=== PATIENT | female | born 1955 | race Two or more races ===

== ENCOUNTER → 2017-04-10 | Outpatient (CLI) | payer MEDICARE, OTHER | END | disposition home or self-care (01) | LOC: CT 14:37 | PROVIDERS: ATTEND Orthopaedic Surgery | DX: M17.11 Unilateral primary osteoarthritis, right knee (principal) | CPT/HCPCS: 73700 ==

== ENCOUNTER 2017-05-05 00:43 | Inpatient (IN) | payer MEDICARE ==
[2017-04-30 14:11] VITALS: BP 163/77
--- NOTE | 2017-04-30 14:34 | PCM.EKG ---
[facility] Test Date: 2017-04-30 Test Time: 14:20:00 Pat Name: PINKY CHRISTOPHER Department: Patient ID: [facility]-[id number] Room: Gender: F Implementation Architect: AWLVAnnel : [id number] Requested By: LAMAR CONNELLY Order Number: [id number] Reading MD: Marty Valles Measurements Intervals [place] Rate: 96 P: 75 PA: 134 QRS: -5 QRSD: 90 T: 70 QT: 368 QTc: 464 Interpretive Statements Normal sinus rhythm Normal ECG No previous ECG available for comparison Electronically Signed On 04-30-2017 15:32:17 MANAGER MECHANICAL by Marty Valles Please click the below link to view image of tracing.
[2017-04-30 14:45] LABS: BASOPHIL % 0.3 % (0.0-0.2); EOSINOPHIL # 0.1 10^3/uL (0.0-0.2); EOSINOPHIL % 1.1 % (0.0-5.0); HEMOGLOBIN 14.1 g/dL (12.0-15.0); LYMPHOCYTES % 39.9 % (24.0-44.0); MEAN CELL HGB 30.8 pg (26-34); MEAN CELL HGB CONCENTRATION 33.7 g/dL (33-37); MEAN CORP VOLUME 91.3 fL (78-100); MEAN PLATELET VOLUME 11.2 fL (7.8-11.0); MONOCYTES # 0.4 10^3/uL (0.3-0.8); MONOCYTES % 4.7 % (5.0-12.0); NEUTROPHILS % 53.7 % (41.0-85.0); RED CELL DISTRIBUTION WIDTH 13.1 % (11.5-14.5); WHITE BLOOD CELL 7.5 10^3/uL (4.5-11.0)
[2017-04-30 14:53] LABS: BILIRUBIN,URINE NEGATIVE (NEGATIVE); UROBILINOGEN,URINE NORMAL (NEGATIVE)
[2017-04-30 14:54] LABS: APPEARANCE,URINE CLEAR (CLEAR); UA COLOR STRAW (YELLOW)
[2017-04-30 15:03] LABS: CALCIUM 9.3 mg/dL (8.4-10.5); CARBON DIOXIDE 23.3 mmol/L (20.0-32)
[~2017-05-05] VITALS: Ht 154.9 cm; Wt 95.7 kg
[2017-05-05] VITALS (11 sets, daily range): BP systolic 134–157; BP diastolic 67–95
[~2017-05-05 00:43] MED LIST: CHRO200C PO; CYCL10TA2 PO; HYDR-3101 PO; MULT-615 PO; TURM500C7 PO
[2017-05-05] MEDS ORDERED: VANCOMYCIN HCL 2 GM ONE (04:53)
[2017-05-05] MEDS ORDERED: NS 250ML 250 ML IV ONE ×2 (04:54→08:35)
[2017-05-05] MEDS ORDERED: VANCOMYCIN 1,500 MG in NS 100ML 100 ML IV ONE (07:45)
[2017-05-05] MEDS ORDERED: BACTROBAN NASAL NS ONE (07:45)
[2017-05-05] MEDS: NS 1000ML 1,000 ML IV SCH (08:05)
[2017-05-05] MEDS ORDERED: NS 100ML 200 ML IV ONE (08:35)
[2017-05-05] MEDS ORDERED: NS 3000ML IRR IR ONE (08:35)
[2017-05-05] MEDS ORDERED: SODIUM CHLORIDE IR ONE (08:35)
[2017-05-05] MEDS ORDERED: TRANEXAMIC ACID IV ONE (08:44)
[2017-05-05] MEDS ORDERED: ZOFRAN ONE (08:56)
[2017-05-05] MEDS ORDERED: NEOSTIGMINE ONE (08:56)
[2017-05-05] MEDS ORDERED: TORADOL ONE (08:56)
[2017-05-05] MEDS ORDERED: ZEMURON IV ONE (08:57)
[2017-05-05] MEDS ORDERED: DIPRIVAN IV ONE (08:58)
[2017-05-05] MEDS ORDERED: SUBLIMAZE ONE (08:58)
[2017-05-05] MEDS ORDERED: VERSED ONE (08:58)
[2017-05-05] MEDS ORDERED: NS 1000ML 1,000 ML ONE ×2 (09:00→12:32)
[2017-05-05] MEDS ORDERED: NS 100ML 100 ML IV ONE (09:00)
[2017-05-05] MEDS ORDERED: DECADRON ONE ×2 (09:00→09:25)
[2017-05-05] MEDS ORDERED: NAROPIN 0.5% 5 MG/ML VIAL ONE (09:01)
[2017-05-05] MEDS ORDERED: NAROPIN 0.2% 40 MG/20 ML VIAL ONE (09:01)
[2017-05-05] MEDS ORDERED: DURAMORPH ONE (09:02)
[2017-05-05] MEDS ORDERED: LIDOCAINE 2% VIAL ONE (09:25)
[2017-05-05] MEDS ORDERED: QUELICIN ONE (09:39)
[2017-05-05] MEDS ORDERED: SUBLIMAZE IV PRN (11:00)
[2017-05-05] MEDS ORDERED: MORPHINE SULFATE IV PRN ×2 (11:00→13:30)
[2017-05-05] MEDS ORDERED: PHENERGAN IV PRN (11:00)
[2017-05-05] MEDS ORDERED: TYLENOL PO ONE (11:00)
[2017-05-05] MEDS ORDERED: NS 1000ML 1,000 ML SCH (11:00)
[2017-05-05] MEDS ORDERED: NEURONTIN PO SCH (11:00)
[2017-05-05] MEDS ORDERED: CELEBREX PO ONE ×2 (11:00→21:00)
[2017-05-05] MEDS ORDERED: ZOFRAN IV PRN (11:00)
[2017-05-05] MEDS ORDERED: CEPACOL SORE THROAT LOZENGE MM PRN (13:30)
[2017-05-05] MEDS ORDERED: BACTROBAN NASAL NS PRN (13:30)
[2017-05-05] MEDS ORDERED: LACTATED RINGERS 1,000 ML IV SCH (13:30)
[2017-05-05] MEDS ORDERED: AMBIEN PO PRN (13:30)
[2017-05-05] MEDS ORDERED: VANCOMYCIN HCL IV SCH (13:30)
--- NOTE | 2017-05-05 14:00 | NUR ---
Patient received to floor. Bedside report recieved. CMS check verified by this nurse and PACU nurse.
--- NOTE | 2017-05-05 14:18 | DIREP ---
PROCEDURE:XRAY KNEE 1-2 VWS-RT COMPARISON:None. INDICATIONS:post total right knee FINDINGS: BONES:No acute fracture. JOINTS:Total knee arthroplasty. The prosthetic joint appears intact and appropriately aligned. SOFT TISSUES:Soft tissue edema and emphysema about the knee is consistent with recent postoperative state, as evidenced by overlying skin jose raul. CONCLUSION:Postoperative changes of recent total right knee arthroplasty. No suspicious abnormality. Dictated by: Abner Pierson M.D. on 05/05/2017 at 02:11 PM
--- NOTE | 2017-05-05 14:38 | HPH ---
ADMIT DATE: 05/05/2017 CHIEF COMPLAINT: Painful right knee. HISTORY OF PRESENT ILLNESS: The patient is a 61-year-old female with right knee pain for at least 1 year. She complains of painful locking as well as popping that is painful. Also, complains of giving way. She is no better with bracing or cortisone injections. She has had a trial of Orthovisc without relief. She has had 12 physical therapy visits. She takes hydrocodone 7.5 as well as Flexeril for the pain. She has tried different anti-inflammatories including Advil and Aleve without relief. She has pain at night as well as pain with just household ambulation. The patient's x-rays show that she is luvl-uv-ehba about the medial aspect of the right knee as well as the patellofemoral joint. MEDICATIONS: Include hydrocodone 7.5 q.6 hours p.r.n. pain. She also takes Flexeril 10 mg 3 times a day. PAST MEDICAL HISTORY: Medical problems include type 2 diabetes. PREVIOUS SURGICAL PROCEDURES: , cholecystectomy, herniorrhaphy, appendectomy. SOCIAL HISTORY: The patient is . She lives in [place], [place]. She does not smoke or drink. ALLERGIES: SHE IS ALLERGIC TO AMOXICILLIN, PENICILLIN AND DILAUDID. FAMILY HISTORY: Positive for diabetes as well as lung cancer. REVIEW OF SYSTEMS: Negative for chest pain, shortness of breath, nausea, vomiting, melena, hematochezia, dysuria, hematuria, fever, chills and weight loss. Her diabetes is controlled by diet. PHYSICAL EXAMINATION: GENERAL: Shows a 5 feet 1 inches, 175 pounds, female in no acute distress. HEENT: Within normal limits. CHEST: Clear to auscultation. HEART: Regular rate and rhythm, no murmurs. ABDOMEN: Soft, nontender, good bowel sounds. EXTREMITIES: The right knee has an obvious varus deformity. She has crepitation with flexion and extension. Her range of motion is full extension with 115 degrees of flexion. There is good medial and lateral stability. NEUROLOGICAL: The patient is awake and alert. She is oriented x 3. She has 5/5 strength in all muscle groups of both lower and upper extremities bilaterally, symmetric. There is normal sensation throughout all dermatomes in both lower extremities. IMAGING STUDIES: The patient's x-rays show that she is cwsh-ut-bdbg medially about the right knee as well as about the patellofemoral joint. ASSESSMENT: Osteoarthritis, right knee. Other diagnoses include type 2 diabetes, diet controlled. PLAN: The patient is being admitted for right total knee arthroplasty for pain relief. The risks and hazards of the procedure have been discussed with the patient. She understands the risk involved and wants to proceed as planned. Taqueria Pimentel MD DR: BRAD/lilliam JOB# [id number]
[2017-05-05] MEDS: TYLENOL PO SCH ×2 (14:47→16:50)
[2017-05-05] MEDS: ULTRAM PO PRN ×2 (14:54→20:08)
[2017-05-05] MEDS: BACTROBAN NASAL NS SCH ×2 (15:30→20:09)
[2017-05-05] MEDS: ULTRAM PO SCH ×2 (16:00→20:00)
--- NOTE | 2017-05-05 18:09 | PRM.PN ---
Subjective Subjective Date: May 05, 2017 Time: 18:09 Subjective Awake and alert Pain ok VSS NMV+ Stable Patient History: Diabetes mellitus G8 SISTER G8 SISTER G8 SISTER G8 SISTER FH: coronary artery bypass surgery 33 FATHER, , Age:67 FH: coronary artery disease 33 FATHER, , Age:67 FH: leukemia G8 SISTER FH: uterine cancer G8 SISTER G8 SISTER Hypertension 32 MOTHER, , Age:70 G8 SISTER No known health problems 19 CHILD 19 CHILD 19 CHILD No Family History of: Alzheimer's disease Asthma Cerebrovascular disorder Chronic obstructive pulmonary disease Congestive heart failure Diabetes insipidus Parkinson's disease VTE VTE Risk Total Score: 4 VTE Risk Score VTE Risk: Score 0-1 = Low Risk (Aggressive mobilization; early ambulation; no VTE prophylaxis required) Score 2: Moderate Risk (Intermittent/Pneumatic Compression Device OR Lovenox/Heparin/Coumadin) Score 3-4: High Risk (Intermittent/Pneumatic Compression Device AND Lovenox/Heparin/Coumadin) Score > or =5: Highest Risk (Intermittent/Pneumatic Compression Device AND Lovenox/Heparin/Coumadin) Review of Systems Allergies: Coded Allergies: Penicillins (Verified Allergy, Severe, Swelling, 04/30/17) amoxicillin (Verified Allergy, Severe, Swelling, 04/30/17) hydromorphone (Verified Allergy, Severe, SHORTNESS OF BREATH,LOW HR, FEVER , 04/30/17) Scheduled Chromium Picolinate (Chromium Picolinate), 200 MCG PO DAILY24, (Reported) Cyclobenzaprine Hcl (Flexeril), 1 TAB PO BID, (Reported) Hydrocodone Bit/Acetaminophen ([place] 7.5-325), 1 TAB PO BID, (Reported) Multivitamin With Minerals (Hair, Skin & Nails), 1 EACH PO DAILY24, (Reported) Turmeric/Turmeric Root Extract (Turmeric 450-50 mg Capsule), 1 CAPSULE PO DAILY24, (Reported) Objective Vitals and I/O Vital Sign - Last 24 Hours 05/05/17 05/05/17 05/05/17 05/05/17 07:51 07:51 09:53 09:58 Temp 97.8 Pulse 81 93 83 Resp 18 18 18 B/P (MAP) 141/80 (100) 157/95 (115) 147/72 (97) Pulse Ox 97 99 96 O2 Delivery Room Air Room Air Room Air Room Air 05/05/17 05/05/17 05/05/17 05/05/17 10:03 10:08 10:13 13:08 Temp 98.0 Pulse 72 69 84 86 Resp 18 18 18 18 B/P (MAP) 142/73 (96) 150/67 (94) 156/72 (100) 146/78 (100) Pulse Ox 97 97 96 83 O2 Delivery Room Air Room Air Room Air Face Tent 05/05/17 05/05/17 05/05/17 05/05/17 13:22 13:36 14:33 14:52 Temp 97.6 Pulse 63 91 98 Resp 18 18 18 B/P (MAP) 148/77 (100) 134/74 (94) Pulse Ox 98 94 96 O2 Delivery Face Tent Nasal Cannula Nasal Cannula Nasal Cannula O2 Flow Rate 3.00 3.00 FiO2 32 05/05/17 05/05/17 14:53 16:18 Temp 97.6 Pulse 96 Resp 18 20 B/P (MAP) 138/81 (100) Pulse Ox 96 Medication Reconciliation Scheduled Chromium Picolinate (Chromium Picolinate), 200 MCG PO DAILY24, (Reported) Cyclobenzaprine Hcl (Flexeril), 1 TAB PO BID, (Reported) Hydrocodone Bit/Acetaminophen ([place] 7.5-325), 1 TAB PO BID, (Reported) Multivitamin With Minerals (Hair, Skin & Nails), 1 EACH PO DAILY24, (Reported) Turmeric/Turmeric Root Extract (Turmeric 450-50 mg Capsule), 1 CAPSULE PO DAILY24, (Reported) Course Blood Pressure Systolic: 138 Blood Pressure Diastolic: 81 Blood Pressure Mean: 100 Assessment/Plan Assessment/Plan Patient History: Diabetes mellitus G8 SISTER G8 SISTER G8 SISTER G8 SISTER FH: coronary artery bypass surgery 33 FATHER, , Age:67 FH: coronary artery disease 33 FATHER, , Age:67 FH: leukemia G8 SISTER FH: uterine cancer G8 SISTER G8 SISTER Hypertension 32 MOTHER, , Age:70 G8 SISTER No known health problems 19 CHILD 19 CHILD 19 CHILD No Family History of: Alzheimer's disease Asthma Cerebrovascular disorder Chronic obstructive pulmonary disease Congestive heart failure Diabetes insipidus Parkinson's disease LAMAR CONNELLY MD May 05, 2017 18:09
[2017-05-05 18:13] LABS: HEMOGLOBIN 13.7 g/dL (12.0-15.0); MEAN CELL HGB 30.9 pg (26-34); MEAN CELL HGB CONCENTRATION 33.3 g/dL (33-37); MEAN PLATELET VOLUME 10.8 fL (7.8-11.0); RED CELL DISTRIBUTION WIDTH 13.1 % (11.5-14.5); WHITE BLOOD CELL 11.3 10^3/uL (4.5-11.0)
--- NOTE | 2017-05-05 18:18 | OPH ---
DATE OF SURGERY: 05/05/2017 PREOPERATIVE DIAGNOSIS: Osteoarthritis of the right knee. POSTOPERATIVE DIAGNOSIS: Osteoarthritis of the right knee. OPERATIVE PROCEDURE: Right total knee arthroplasty using Medacta Sphere knee, size 3+ femur, a size 3 tibia, a 10 mm insert, a size 2 dome patella. All components were cemented. SURGEON: Taqueria Pimentel MD ANESTHESIA: General endotracheal. TOURNIQUET TIME: 68 minutes at 300 mmHg. DRAINS: None. BLOOD LOSS: 400 mL. DESCRIPTION OF INDICATIONS: A 61-year-old female with right knee pain secondary to osteoarthritis. The patient has failed conservative treatment including physical therapy, bracing, anti-inflammatories, p.o. narcotics, bracing as well as Orthovisc and cortisone injections. She is wuki-in-snmk medially with severe patellofemoral narrowing with osteophytes. She has painful locking and giving way about the knee on a daily basis and is limited from doing her normal daily activities because of knee pain. She was brought to the operating room today for right total knee arthroplasty for pain relief. DESCRIPTION OF PROCEDURE: This patient was placed on the operating table in the supine position. A general endotracheal anesthetic was induced without difficulty. The patient had the right thigh padded and the right lower extremity was then sterilely prepped and draped. The leg was exsanguinated with an Esmarch and the tourniquet was inflated to 300 mmHg. The patient then had the knee flexed to 90 degrees. An anterior incision was made. Incision was taken through the skin and subcutaneous tissues. Full thickness flaps were developed medially and laterally. Medial parapatellar arthrotomy was performed. The patient had the patella deviated laterally. Medial and lateral meniscectomies were performed. The anterior and posterior cruciate ligaments were excised. The capsule and the MCL were released around the posterior medial corner. The patient then had the MyKnee femoral cutting guide placed about the distal femur. It was held into position with multiple pins and then the distal femoral cut was made with the power saw. The patient then had the #2 jig size 3+ placed about the distal femur and held into position with multiple pins and screws. The anterior and posterior femoral cuts were made as were the chamfer cuts. The patient had the tibia subluxed anteriorly. The MyKnee tibial cutting block was applied and held into position with multiple pins. Tibial cut was then made with the power saw. The patient had the tibia trial and a size 3 tibia had good coverage. It was held into position with multiple pins. The central drill hole was made and then the cruciate punch was used to stabilize the tibial component. The patient then had the flexion and extension blocks used. There was good stability at 90 degrees of flexion as well as full extension with the 10 mm blocks. The patient then had the trial femoral component replaced and stabilized with the punch. The 10 mm insert was placed. The size 3+ femoral component was placed. The knee went out into full extension, good tracking of the patella, good medial and lateral stability. The patella was everted. The patella was cut. There were still 13 mm of patella left. The drill holes were made. A size 2 dome patella had good coverage and good tracking. The patient then had the final medial and lateral femoral drill holes made. The femoral sulcus cut was made. The patient had the trial components removed. The wounds were then copiously irrigated and the bone ends were dried. The patient had the size 3 tibial component cemented into position. The 10 mm insert was then impacted into position and secured with an anterior screw. The size 3+ femoral component was cemented as was the patella. Once all the excess cement was removed and the cement had hardened, then, the tourniquet was released, the bleeding was controlled with the Aquamantys device. The wound was irrigated with Betadine-containing solution for 3 minutes. The capsule was closed with a #2 PDS in interrupted [id number] manner. The subcutaneous was closed with 2-0 Monocryl barbed in a running manner and then the skin was closed with jose raul. A medium size Aquacel reinforced with 4 x 8s, ABD pads, cast padding and Damien wrap was applied. The patient was extubated in the operating room, sent to recovery in stable condition. Taqueria Pimentel MD DR: BRAD/lilliam JOB# [id number]
[2017-05-05] MEDS: CELEBREX PO SCH (20:07)
[2017-05-05] MEDS: VANCOMYCIN HCL 1.5 GM in NS 250ML 300 ML IV SCH (20:07)
[2017-05-06] MEDS: ULTRAM PO PRN ×5 (00:39→23:29)
[2017-05-06] MEDS: NS 1000ML 1,000 ML IV SCH ×3 (00:41→12:15)
[2017-05-06] MEDS: TYLENOL PO SCH ×6 (00:43→23:28)
[2017-05-06 01:51] VITALS: BP 141/85
[2017-05-06] MEDS: ULTRAM PO SCH ×6 (04:00→20:00)
[2017-05-06 05:26] LABS: HEMOGLOBIN 12.7 g/dL (12.0-15.0); MEAN CELL HGB 30.2 pg (26-34); MEAN CELL HGB CONCENTRATION 32.8 g/dL (33-37); MEAN CORP VOLUME 92.1 fL (78-100); MEAN PLATELET VOLUME 11.4 fL (7.8-11.0); RED CELL DISTRIBUTION WIDTH 12.9 % (11.5-14.5); WHITE BLOOD CELL 12.2 10^3/uL (4.5-11.0)
[2017-05-06 05:51] VITALS: BP 125/78
--- NOTE | 2017-05-06 06:30 | NUR ---
Report Received report assumed care of patient.
[2017-05-06 07:22] VITALS: BP 129/59
[2017-05-06] MEDS: CELEBREX PO SCH ×2 (08:23→20:48)
[2017-05-06] MEDS: XARELTO PO SCH (08:24)
[2017-05-06] MEDS: PEPCID PO SCH (08:24)
[2017-05-06] MEDS: COLACE PO SCH (08:24)
[2017-05-06] MEDS: VANCOMYCIN HCL 1.5 GM in NS 250ML 300 ML IV SCH (08:27)
[2017-05-06] MEDS: BACTROBAN NASAL NS SCH ×2 (08:29→20:48)
--- NOTE | 2017-05-06 08:30 | NUR ---
PT at bedside
--- NOTE | 2017-05-06 08:45 | NUR ---
STATUS Patient sitting up in chair at this time. Denies any wants or needs at this time. No s/s of distress noted. Call light in reach. Will continue to monitor.
[2017-05-06] MEDS ORDERED: DEXTROSE 50%-WATER SYRINGE IV PRN (09:00)
--- NOTE | 2017-05-06 09:28 | NUR ---
Post op pain rounds POD #1 after knee surgery. Pt is sitting in chair. States have not ambulated as of yet dt 'high blood sugar yesterday". Pt states that she noticed pain block wore off around 0300 this morning. She is very pleased with anesthetic and pain block. no complications noted.
--- NOTE | 2017-05-06 09:59 | PRM.PN ---
Subjective Subjective Date: May 06, 2017 Time: 09:58 Subjective Ambulated in sow today Pain ok VSS NVM+ HGB 12.7 Cont with PT Patient History: Diabetes mellitus G8 SISTER G8 SISTER G8 SISTER G8 SISTER FH: coronary artery bypass surgery 33 FATHER, , Age:67 FH: coronary artery disease 33 FATHER, , Age:67 FH: leukemia G8 SISTER FH: uterine cancer G8 SISTER G8 SISTER Hypertension 32 MOTHER, , Age:70 G8 SISTER No known health problems 19 CHILD 19 CHILD 19 CHILD No Family History of: Alzheimer's disease Asthma Cerebrovascular disorder Chronic obstructive pulmonary disease Congestive heart failure Diabetes insipidus Parkinson's disease VTE VTE Risk Total Score: 4 VTE Risk Score VTE Risk: Score 0-1 = Low Risk (Aggressive mobilization; early ambulation; no VTE prophylaxis required) Score 2: Moderate Risk (Intermittent/Pneumatic Compression Device OR Lovenox/Heparin/Coumadin) Score 3-4: High Risk (Intermittent/Pneumatic Compression Device AND Lovenox/Heparin/Coumadin) Score > or =5: Highest Risk (Intermittent/Pneumatic Compression Device AND Lovenox/Heparin/Coumadin) Review of Systems Allergies: Coded Allergies: Penicillins (Verified Allergy, Severe, Swelling, 04/30/17) amoxicillin (Verified Allergy, Severe, Swelling, 04/30/17) hydromorphone (Verified Allergy, Severe, SHORTNESS OF BREATH,LOW HR, FEVER , 04/30/17) Scheduled Chromium Picolinate (Chromium Picolinate), 200 MCG PO DAILY24, (Reported) Cyclobenzaprine Hcl (Flexeril), 1 TAB PO BID, (Reported) Hydrocodone Bit/Acetaminophen ([place] 7.5-325), 1 TAB PO BID, (Reported) Multivitamin With Minerals (Hair, Skin & Nails), 1 EACH PO DAILY24, (Reported) Turmeric/Turmeric Root Extract (Turmeric 450-50 mg Capsule), 1 CAPSULE PO DAILY24, (Reported) Objective Vitals and I/O Vital Sign - Last 24 Hours 05/05/17 05/05/17 05/05/17 05/05/17 10:03 10:08 10:13 13:08 Temp 98.0 Pulse 72 69 84 86 Resp B/P (MAP) 142/73 (96) 150/67 (94) 156/72 (100) 146/78 (100) Pulse Ox 97 97 96 83 O2 Delivery Room Air Room Air Room Air Face Tent 05/05/17 05/05/17 05/05/17 05/05/17 13:22 13:36 14:33 14:52 Temp 97.6 Pulse 63 91 98 Resp 18 B/P (MAP) 148/77 (100) 134/74 (94) Pulse Ox 98 94 96 O2 Delivery Face Tent Nasal Cannula Nasal Cannula Nasal Cannula O2 Flow Rate 3.00 3.00 FiO2 32 05/05/17 05/05/17 05/05/17 05/05/17 14:53 16:18 20:19 21:27 Temp 97.6 98.0 Pulse 96 96 96 Resp 18 20 18 B/P (MAP) 138/81 (100) 146/81 (102) Pulse Ox 96 96 95 O2 Delivery Nasal Cannula Room Air O2 Flow Rate 2.00 05/05/17 05/06/17 05/06/17 05/06/17 23:12 01:51 05:51 07:22 Temp 97.9 98.4 98.4 Pulse 88 86 73 Resp 18 18 B/P (MAP) 141/85 (103) 125/78 (94) 129/59 (82) Pulse Ox 92 94 93 O2 Delivery Nasal Cannula Nasal Canula Nasal Canula Nasal Canula O2 Flow Rate 1.00 05/06/17 05/06/17 09:19 09:38 Pulse 80 Resp 18 Pulse Ox 91 O2 Delivery Room Air Room Air O2 Flow Rate 1.00 FiO2 21 Intake and Output 05/05/17 05/05/17 05/06/17 15:00 23:00 07:00 Intake Total 1980 ml 600 ml 450 ml Output Total 630 ml 600 ml 2000 ml Balance 1350 ml 0 ml -1550 ml Medication Reconciliation Scheduled Chromium Picolinate (Chromium Picolinate), 200 MCG PO DAILY24, (Reported) Cyclobenzaprine Hcl (Flexeril), 1 TAB PO BID, (Reported) Hydrocodone Bit/Acetaminophen ([place] 7.5-325), 1 TAB PO BID, (Reported) Multivitamin With Minerals (Hair, Skin & Nails), 1 EACH PO DAILY24, (Reported) Turmeric/Turmeric Root Extract (Turmeric 450-50 mg Capsule), 1 CAPSULE PO DAILY24, (Reported) Course Blood Pressure Systolic: 129 Blood Pressure Diastolic: 59 Blood Pressure Mean: 82 Assessment/Plan Assessment/Plan Patient History: Diabetes mellitus G8 SISTER G8 SISTER G8 SISTER G8 SISTER FH: coronary artery bypass surgery 33 FATHER, , Age:67 FH: coronary artery disease 33 FATHER, , Age:67 FH: leukemia G8 SISTER FH: uterine cancer G8 SISTER G8 SISTER Hypertension 32 MOTHER, , Age:70 G8 SISTER No known health problems 19 CHILD 19 CHILD 19 CHILD No Family History of: Alzheimer's disease Asthma Cerebrovascular disorder Chronic obstructive pulmonary disease Congestive heart failure Diabetes insipidus Parkinson's disease LAMAR CONNELLY MD May 06, 2017 09:59
[2017-05-06] MEDS ORDERED: NEURONTIN PO SCH (11:00)
--- NOTE | 2017-05-06 11:00 | NUR ---
DISCHARGE PLANNING CASE MANAGEMENT DISCUSSED DISCHARGE PLANNING WITH PATIENT INCLUDING HOME HEALTH, OUTPATIENT REHAB, SNF, REHAB, AND DME. PATIENT LIVES AT HOME WITH . PT STATED, "I LIVE IN [place], [place]. I WOULD LIKE [facility] TO FOLLOW ME AT HOME FOR PHYSICAL THERAPY." CHOICE LETTER SIGNED AND INFORMATION FAXED TO [facility] IN [place], [place]. PT ALSO REQUESTED SHOWER BENCH WITH BACK. INFORMED PATIENT OF $50-$60 COST. PT STATED, "I CAN PAY FOR IT, I HAVE MY CREDIT CARD WITH ME NOW." PT STATED, "I ALREADY HAVE A WALKER AT HOME." DENIES NEED FOR OTHER DME AT THIS TIME. DISCHARGE GOAL IS TO DISCHARGE HOME WITH AND [facility] TO FOLLOW AT HOME. WILL CONTINUE TO FOLLOW DISCHARGE NEEDS.
[2017-05-06 11:34] VITALS: BP 142/72
--- NOTE | 2017-05-06 11:38 | CNH ---
DATE OF CONSULTATION: 05/05/2017 ATTENDING PHYSICIAN: Taqueria Pimentel MD REASON FOR CONSULTATION: Concurrent postop medical care. HISTORY OF PRESENT ILLNESS: The patient is a very pleasant 61-year-old female who was having worsening DJD of her right knee. She underwent a right total knee arthroplasty by Dr. Pimentel today. It was noted that her blood sugars were over 300 preoperatively. She states that she was diagnosed with diabetes 16-17 years ago and has been on diet control since then. She states that her sugars normally have been very good, but lately have been increasing. She is not taking any new medications and she has been keeping the diet the same. She denies any chest pain or shortness of breath at this time. She states that she feels okay. PAST MEDICAL HISTORY: Again, type 2 diabetes mellitus that was diet controlled, DJD. PAST SURGICAL HISTORY: Cholecystectomy, hernia repair, appendectomy and . SOCIAL HISTORY: She does not smoke. No illicit drugs, no alcohol. ALLERGIES: AMOXICILLIN, DILAUDID AND PENICILLIN. FAMILY HISTORY: Asked and noncontributory for this admission. MEDICATIONS: She is on include just [place] and Flexeril. PHYSICAL EXAMINATION: VITAL SIGNS: Currently, her temperature is 97.6, pulse rate 96, respirations 20, blood pressure was 138/81 and O2 sats of 96% on room air. My physical exam is as follows: GENERAL: She is in no acute distress, awake and alert, very pleasant lady, oriented x 4. HEENT: Oropharynx is clear. NECK: Supple, no JVD. HEART: S1, S2 audible. She was not tachycardic. No murmurs. LUNGS: Clear bilaterally. ABDOMEN: Good bowel sounds, soft abdomen, no rebound or guarding. EXTREMITIES: She has some minimal edema to her legs. LABORATORY DATA: Postop hemoglobin is at 13.7 from 14.1 in her labs. Her MRSA screen was positive. ASSESSMENT: We have this female status post right total knee arthroplasty with markedly elevated blood sugars up to 300 and MRSA positive. I explained to her about the MRSA screen and she will be treated for that. I did talk to her about her progressive diabetes going on for over 10 years and the need to treat it at this point. She understands and is in agreement with me. So, we will follow her blood sugars overnight and I will talk to her about starting her on a diabetic medicine in the morning. She is afraid of metformin because her is on it and has GI side effects from it and she is afraid that she will get GI side effects from this and I explained to her that there are other medications to use besides this. So, we will see how her sugars will do overnight and I will talk to her about treating it in the morning. I will follow along with Dr. Pimentel. I would like to thank Dr. Pimentel for this consultation. Susie Puente MD DR: EVELYN/lilliam JOB# [id number]
[2017-05-06] MEDS: VALIUM PO PRN ×2 (12:12→20:48)
--- NOTE | 2017-05-06 12:15 | NUR ---
Patient back in bed at this time.
--- NOTE | 2017-05-06 13:45 | NUR ---
STATUS Patient resting in bed at this time resting with eyes closed. Alert to verbal stimuli. Denies any wants or needs. No s/s of distress noted call light in reach. Patient states her pain has finally decreased after last dose of pain medication.
[2017-05-06 16:11] VITALS: BP 142/72
[2017-05-06] MEDS: HUMALOG SQ PRN (17:08)
[2017-05-06 19:17] VITALS: BP 167/63
[2017-05-07] VITALS: BP 148/70
[2017-05-07] MEDS: ULTRAM PO SCH ×6 (04:00→16:00)
[2017-05-07 04:10] VITALS: BP 155/72
[2017-05-07] MEDS: ULTRAM PO PRN ×4 (04:10→20:36)
[2017-05-07] MEDS: TYLENOL PO SCH ×2 (04:11→16:09)
[2017-05-07 05:16] LABS: BASOPHIL % 0.4 % (0.0-0.2); EOSINOPHIL # 0.1 10^3/uL (0.0-0.2); LYMPHOCYTES # 2.9 10^3/uL (1.0-4.8); MEAN CELL HGB 30.7 pg (26-34); MEAN CELL HGB CONCENTRATION 32.7 g/dL (33-37); MEAN CORP VOLUME 93.9 fL (78-100); MEAN PLATELET VOLUME 10.6 fL (7.8-11.0); MONOCYTES # 0.8 10^3/uL (0.3-0.8); MONOCYTES % 8.2 % (5.0-12.0); NEUTROPHIL # 5.5 10^3/uL (1.8-7.7); NEUTROPHILS % 59.2 % (41.0-85.0); RED CELL DISTRIBUTION WIDTH 13.1 % (11.5-14.5); WHITE BLOOD CELL 9.3 10^3/uL (4.5-11.0)
--- NOTE | 2017-05-07 06:10 | NUR ---
CARY SALAZAR. DC'D PT DTV BY [id number].
--- NOTE | 2017-05-07 06:30 | NUR ---
Report Received report assumed care of patient. Patient alert to verbal stimuli. Denies any wants or needs at this time. No s/s of distress noted call light in reach.
[2017-05-07] MEDS: NS 1000ML 1,000 ML IV SCH ×3 (07:07→08:44)
[2017-05-07] MEDS: VALIUM PO PRN ×2 (08:00→20:36)
--- NOTE | 2017-05-07 08:20 | NUR ---
Ambulation Patient ambulating in sow with PT.
[2017-05-07 08:33] VITALS: BP 146/80
--- NOTE | 2017-05-07 08:33 | PRM.PN ---
Subjective Subjective Date: May 07, 2017 Time: 08:32 Subjective Slowly progressing with PT Afebrile vss HGB 12 Dressing dry Cont with PT Patient History: Diabetes mellitus G8 SISTER G8 SISTER G8 SISTER G8 SISTER FH: coronary artery bypass surgery 33 FATHER, , Age:67 FH: coronary artery disease 33 FATHER, , Age:67 FH: leukemia G8 SISTER FH: uterine cancer G8 SISTER G8 SISTER Hypertension 32 MOTHER, , Age:70 G8 SISTER No known health problems 19 CHILD 19 CHILD 19 CHILD No Family History of: Alzheimer's disease Asthma Cerebrovascular disorder Chronic obstructive pulmonary disease Congestive heart failure Diabetes insipidus Parkinson's disease VTE VTE Risk Total Score: 4 VTE Risk Score VTE Risk: Score 0-1 = Low Risk (Aggressive mobilization; early ambulation; no VTE prophylaxis required) Score 2: Moderate Risk (Intermittent/Pneumatic Compression Device OR Lovenox/Heparin/Coumadin) Score 3-4: High Risk (Intermittent/Pneumatic Compression Device AND Lovenox/Heparin/Coumadin) Score > or =5: Highest Risk (Intermittent/Pneumatic Compression Device AND Lovenox/Heparin/Coumadin) Review of Systems Allergies: Coded Allergies: Penicillins (Verified Allergy, Severe, Swelling, 04/30/17) amoxicillin (Verified Allergy, Severe, Swelling, 04/30/17) hydromorphone (Verified Allergy, Severe, SHORTNESS OF BREATH,LOW HR, FEVER , 04/30/17) Scheduled Chromium Picolinate (Chromium Picolinate), 200 MCG PO DAILY24, (Reported) Cyclobenzaprine Hcl (Flexeril), 1 TAB PO BID, (Reported) Hydrocodone Bit/Acetaminophen ([place] 7.5-325), 1 TAB PO BID, (Reported) Multivitamin With Minerals (Hair, Skin & Nails), 1 EACH PO DAILY24, (Reported) Turmeric/Turmeric Root Extract (Turmeric 450-50 mg Capsule), 1 CAPSULE PO DAILY24, (Reported) Objective Vitals and I/O Vital Sign - Last 24 Hours 05/06/17 05/06/17 05/06/17 05/06/17 09:19 09:38 11:34 16:11 Temp 98.3 98.3 Pulse 80 67 64 Resp 18 18 18 B/P (MAP) 142/72 (95) 142/72 (95) Pulse Ox 91 94 90 O2 Delivery Room Air Room Air Nasal [place] Room Air O2 Flow Rate 1.00 FiO2 21 05/06/17 05/06/17 05/06/17 05/07/17 19:15 19:17 19:53 00:00 Temp 98.5 98.1 Pulse 70 80 64 Resp 18 18 18 B/P (MAP) 167/63 (97) 148/70 (96) Pulse Ox 92 92 92 O2 Delivery Room Air Nasal [place] Nasal [place] Nasal [place] O2 Flow Rate 1.00 05/07/17 05/07/17 04:10 08:24 Temp 98.7 Pulse 64 66 Resp 18 18 B/P (MAP) 155/72 (99) Pulse Ox 93 96 O2 Delivery Nasal [place] O2 Flow Rate 1.00 FiO2 24 Intake and Output 05/06/17 05/06/17 05/07/17 15:00 23:00 07:00 Intake Total 940 ml 400 ml Output Total 1600 ml 1000 ml Balance -660 ml -600 ml Medication Reconciliation Scheduled Chromium Picolinate (Chromium Picolinate), 200 MCG PO DAILY24, (Reported) Cyclobenzaprine Hcl (Flexeril), 1 TAB PO BID, (Reported) Hydrocodone Bit/Acetaminophen ([place] 7.5-325), 1 TAB PO BID, (Reported) Multivitamin With Minerals (Hair, Skin & Nails), 1 EACH PO DAILY24, (Reported) Turmeric/Turmeric Root Extract (Turmeric 450-50 mg Capsule), 1 CAPSULE PO DAILY24, (Reported) Course Blood Pressure Systolic: 155 Blood Pressure Diastolic: 72 Blood Pressure Mean: 99 Assessment/Plan Assessment/Plan Patient History: Diabetes mellitus G8 SISTER G8 SISTER G8 SISTER G8 SISTER FH: coronary artery bypass surgery 33 FATHER, , Age:67 FH: coronary artery disease 33 FATHER, , Age:67 FH: leukemia G8 SISTER FH: uterine cancer G8 SISTER G8 SISTER Hypertension 32 MOTHER, , Age:70 G8 SISTER No known health problems 19 CHILD 19 CHILD 19 CHILD No Family History of: Alzheimer's disease Asthma Cerebrovascular disorder Chronic obstructive pulmonary disease Congestive heart failure Diabetes insipidus Parkinson's disease LAMAR CONNELLY MD May 07, 2017 08:33
[2017-05-07] MEDS: HUMALOG SQ PRN ×2 (08:35→12:32)
[2017-05-07] MEDS: CELEBREX PO SCH ×2 (08:41→20:36)
[2017-05-07] MEDS: COLACE PO SCH (08:41)
[2017-05-07] MEDS: PEPCID PO SCH (08:41)
[2017-05-07] MEDS: XARELTO PO SCH (08:42)
[2017-05-07] MEDS: BACTROBAN NASAL NS SCH ×2 (08:43→20:37)
--- NOTE | 2017-05-07 10:31 | NUR ---
Status Patient sitting up in chair at this time.
[2017-05-07 11:21] VITALS: BP 168/75
[2017-05-07 16:13] VITALS: BP 148/71
[2017-05-07 20:25] VITALS: BP 149/79
[2017-05-08 00:20] VITALS: BP 149/85
[2017-05-08] MEDS: ULTRAM PO PRN ×2 (00:24→08:08)
[2017-05-08] MEDS: TYLENOL PO SCH ×2 (00:24→07:06)
[2017-05-08 05:14] VITALS: BP 131/76
[2017-05-08] MEDS: ULTRAM PO SCH ×3 (07:06→08:00)
[2017-05-08 07:21] VITALS: BP 154/82
[2017-05-08] MEDS ORDERED: XARELTO ONE (08:03)
[2017-05-08] MEDS: COLACE PO SCH (08:09)
[2017-05-08] MEDS: PEPCID PO SCH (08:09)
[2017-05-08] MEDS: XARELTO PO SCH (08:09)
[2017-05-08] MEDS: CELEBREX PO SCH (08:10)
[2017-05-08] MEDS: BACTROBAN NASAL NS SCH (08:29)
[2017-05-08] MEDS: NS 1000ML 1,000 ML IV SCH (08:30)
--- NOTE | 2017-05-08 09:59 | PRM.PN ---
Subjective Subjective Date: May 08, 2017 Time: 09:58 Subjective Independent with PT and OT Afebrile VSS Wound ok Will dc Appt 1 week Patient History: Diabetes mellitus G8 SISTER G8 SISTER G8 SISTER G8 SISTER FH: coronary artery bypass surgery 33 FATHER, , Age:67 FH: coronary artery disease 33 FATHER, , Age:67 FH: leukemia G8 SISTER FH: uterine cancer G8 SISTER G8 SISTER Hypertension 32 MOTHER, , Age:70 G8 SISTER No known health problems 19 CHILD 19 CHILD 19 CHILD No Family History of: Alzheimer's disease Asthma Cerebrovascular disorder Chronic obstructive pulmonary disease Congestive heart failure Diabetes insipidus Parkinson's disease VTE VTE Risk Total Score: 4 VTE Risk Score VTE Risk: Score 0-1 = Low Risk (Aggressive mobilization; early ambulation; no VTE prophylaxis required) Score 2: Moderate Risk (Intermittent/Pneumatic Compression Device OR Lovenox/Heparin/Coumadin) Score 3-4: High Risk (Intermittent/Pneumatic Compression Device AND Lovenox/Heparin/Coumadin) Score > or =5: Highest Risk (Intermittent/Pneumatic Compression Device AND Lovenox/Heparin/Coumadin) Review of Systems Allergies: Coded Allergies: Penicillins (Verified Allergy, Severe, Swelling, 04/30/17) amoxicillin (Verified Allergy, Severe, Swelling, 04/30/17) hydromorphone (Verified Allergy, Severe, SHORTNESS OF BREATH,LOW HR, FEVER , 04/30/17) Scheduled Chromium Picolinate (Chromium Picolinate), 200 MCG PO DAILY24, (Reported) Cyclobenzaprine Hcl (Flexeril), 1 TAB PO BID, (Reported) Hydrocodone Bit/Acetaminophen ([place] 7.5-325), 1 TAB PO BID, (Reported) Multivitamin With Minerals (Hair, Skin & Nails), 1 EACH PO DAILY24, (Reported) Turmeric/Turmeric Root Extract (Turmeric 450-50 mg Capsule), 1 CAPSULE PO DAILY24, (Reported) Objective Vitals and I/O Vital Sign - Last 24 Hours 05/07/17 05/07/17 05/07/17 05/07/17 11:21 16:13 19:43 19:50 Temp 97.8 98.3 Pulse 69 74 87 Resp 18 18 20 B/P (MAP) 168/75 (106) 148/71 (96) Pulse Ox 90 90 85 O2 Delivery Room Air Room Air Room Air Room Air O2 Flow Rate 1.00 FiO2 21 05/07/17 05/08/17 05/08/17 05/08/17 20:25 00:20 05:14 07:21 Temp 98.1 97.7 98.4 97.7 Pulse 83 60 64 64 Resp 18 18 18 18 B/P (MAP) 149/79 (102) 149/85 (106) 131/76 (94) 154/82 (106) Pulse Ox 93 92 96 96 O2 Delivery Room Air Nasal [place] Nasal [place] Nasal [place] 05/08/17 08:24 Pulse 65 Resp 18 Pulse Ox 97 O2 Delivery Room Air FiO2 21 Intake and Output 05/07/17 05/07/17 05/08/17 15:00 23:00 07:00 Intake Total 600 ml 1040 ml 300 ml Output Total 700 ml 400 ml Balance 600 ml 340 ml -100 ml Medication Reconciliation Scheduled Chromium Picolinate (Chromium Picolinate), 200 MCG PO DAILY24, (Reported) Cyclobenzaprine Hcl (Flexeril), 1 TAB PO BID, (Reported) Hydrocodone Bit/Acetaminophen ([place] 7.5-325), 1 TAB PO BID, (Reported) Multivitamin With Minerals (Hair, Skin & Nails), 1 EACH PO DAILY24, (Reported) Turmeric/Turmeric Root Extract (Turmeric 450-50 mg Capsule), 1 CAPSULE PO DAILY24, (Reported) Course Blood Pressure Systolic: 154 Blood Pressure Diastolic: 82 Blood Pressure Mean: 106 Assessment/Plan Assessment/Plan Patient History: Diabetes mellitus G8 SISTER G8 SISTER G8 SISTER G8 SISTER FH: coronary artery bypass surgery 33 FATHER, , Age:67 FH: coronary artery disease 33 FATHER, , Age:67 FH: leukemia G8 SISTER FH: uterine cancer G8 SISTER G8 SISTER Hypertension 32 MOTHER, , Age:70 G8 SISTER No known health problems 19 CHILD 19 CHILD 19 CHILD No Family History of: Alzheimer's disease Asthma Cerebrovascular disorder Chronic obstructive pulmonary disease Congestive heart failure Diabetes insipidus Parkinson's disease LAMAR CONNELLY MD May 08, 2017 09:59
--- NOTE | 2017-05-08 10:35 | NUR ---
WOUND CARE CLEANED THE INCISION SITE AREA IN RIGHT KNEE WITH WOUND CLEANSER, PAT DRIED AND APPLIED AQUACEL DRESSING PER ORDER, Pt ON CPM MACHINE AT AND [employer] AT THIS TIME. Pt SEEMS HAPPY KNOWING that she is going home.
[2017-05-08 11:15] VITALS: BP 163/81
--- NOTE | 2017-05-08 11:15 | NUR ---
DISCHARGED Pt DISCHARGED FROM THE UNIT TO HOME , [employer] INSTRUCTIONS WAS PROVIDED ON DISCHARGE PACKET, Pt VERBALIZED UNDERSTANDING, IV D/C , Pt ASSISTED IN WHEELCHAIR TO TO MAIN EXIT.
--- NOTE | 2017-05-08 21:02 | DSH ---
DATE OF DISCHARGE: 05/08/2017 ADMITTING DIAGNOSIS: Include osteoarthritis of the right knee. OTHER DIAGNOSES: Include diabetes mellitus as well as obesity. DISCHARGE DIAGNOSIS: Include osteoarthritis of the right knee. OPERATIVE PROCEDURE DATE: 05/05/2017. PROCEDURE PERFORMED: Right total knee arthroplasty. CONSULTATIONS: Will be Dr. Susie Puente. COMPLICATIONS: None. SUMMARY OF ADMISSION: The patient is a 61-year-old female with a 1-year history of right knee pain. Basically, she had failed conservative treatment including therapy, cortisone injections, anti-inflammatories and bracing. She had [id number] medially about the right knee as well as [id number] about her patellofemoral joint. She was severely limited in her daily activities and was taken to the operating room for right total knee arthroplasty for pain relief on 05/05/2017. The patient's surgery was performed on 05/05/2017. She tolerated the procedure well. Postoperatively, she had stable vital signs and normal neurovascular exam. The patient has tolerated her diabetic diet postoperatively. The patient has had physical therapy and occupational therapy. On discharge, she can ambulate 100 feet with her walker, weightbearing as tolerated. The patient's wound is benign. She has been on Xarelto as well as foot pump, SCDs and early ambulation for DVT prophylaxis. The patient will be discharged today on 05/08/2017. She will be instructed to use her walker and to weightbear as tolerated. They have arranged for her to get home health at her home for nursing care and physical therapy. She will leave her Aquacel dressing intact. The patient will be given a prescription for tramadol for the pain. She will use aspirin 81 mg twice a day for a month for DVT prophylaxis. The patient will be seen back in my office in 1 week. Taqueria Pimentel MD DR: BRAD/lilliam JOB# [id number]
== END 2017-05-08 12:04 | disposition home health service (06) | DRG 470 ==
LOC: MS 00:43 → EDPENDDISTM 05-08 11:15
PROVIDERS: ADMIT Orthopaedic Surgery; ATTEND Orthopaedic Surgery
PROC: 0SRC0J9 Replacement of Right Knee Joint with Synthetic Substitute, Cemented, Open Approach (ICD-10-PCS; principal; 2017-05-05 10:55)
DX: M17.11 Unilateral primary osteoarthritis, right knee (principal); E11.9 Type 2 diabetes mellitus without complications; E66.9 Obesity, unspecified; Z80.1 Family history of malignant neoplasm of trachea, bronchus and lung; Z83.3 Family history of diabetes mellitus; Z79.899 Other long term (current) drug therapy; Z90.49 Acquired absence of other specified parts of digestive tract; Z88.0 Allergy status to penicillin; Z88.8 Allergy status to other drugs, medicaments and biological substances; Z22.322 Carrier or suspected carrier of Methicillin resistant Staphylococcus aureus; Z82.49 Family history of ischemic heart disease and other diseases of the circulatory system; Z80.59 Family history of malignant neoplasm of other urinary tract organ; Z80.6 Family history of leukemia; Z68.39 Body mass index [BMI] 39.0-39.9, adult
CPT/HCPCS: 36415; 64447; 73560; 80053; 81002; 82948; 85025; 85027; 87070; 93005; 97161; 97165; A4338; J0330; J1100; J1885; J2001; J2250; J2405; J2795; J3010; J3490; J7030; J7050; 97110-GP; 97116-GP; 97530-GP; 97535-GO; 97760-GP; A9270; C1776; G8978-CJ; G8979-CI; G8987; G8988; J2274; J2710; J3370; J8499